=== PATIENT | female | born 1955 | race Caucasian/White ===

== ENCOUNTER 2016-07-27 14:56 | Emergency (ER) | payer OTHER ==
[~2016-07-27] VITALS: Ht 167.6 cm; Wt 90.0 kg
[2016-07-27 15:02] VITALS: Ht 167.6 cm; Wt 90.0 kg
[2016-07-27] MEDS ORDERED: SOD CHLORIDE 0.9% 1,000 ML IV STA ×2 (15:09→16:01)
[2016-07-27 15:26] LABS: ADD SCAN DIFF NO
[2016-07-27 15:28] LABS: BASOPHIL # 0.1 10^3/ul (0.0-0.1); BASOPHILS % 0.4 % (0.0-2.0); EOSINOPHILS # 0.1 10^3/ul (0.0-0.5); EOSINOPHILS % 0.7 % (0.0-7.0); HEMOGLOBIN 14.1 g/dl (12.0-16.0); LYMPHOCYTES # 1.9 10^3/ul (0.8-2.9); LYMPHOCYTES % 15.5 % (15.0-51.0); MEAN CORPUSCULAR HEMOGLOBIN 30.8 pg (29.0-33.0); MEAN CORPUSCULAR HGB CONC 34.4 g/dl (32.0-37.0); MEAN CORPUSCULAR VOLUME 89.5 fl (82.0-101.0); MEAN PLATELET VOLUME 8.8 fl (7.4-10.4); MONOCYTE # 0.9 10^3/ul (0.3-0.9); MONOCYTES % 7.4 % (0.0-11.0); NEUTROPHIL # 9.2 10^3/ul (1.6-7.5); NEUTROPHILS % 75.8 % (39.0-77.0); PLATELET COUNT 247 10^3/UL (140-415); RED BLOOD COUNT 4.58 10^6/ul (4.20-5.40); RED CELL DISTRIBUTION WIDTH 12.7 % (11.5-14.5); WHITE BLOOD COUNT 12.1 10^3/ul (4.8-10.8)
[2016-07-27 15:42] LABS: CHLORIDE 98 mmol/L (97-110); SODIUM 139 mmol/L (135-144)
[2016-07-27 15:43] LABS: POTASSIUM 3.5 mmol/L (3.5-5.1)
[2016-07-27 15:44] LABS: INR 0.92; PARTIAL THROMBOPLASTIN TIME 25.2 Sec (25.0-35.0); PROTIME 12.4 Sec (12.2-14.2)
[2016-07-27 15:45] LABS: ANION GAP 18 (8-16); CARBON DIOXIDE 27 mmol/L (21-31); CREATININE 1.36 mg/dl (0.44-1.00)
[2016-07-27 15:46] LABS: BLOOD UREA NITROGEN 26 mg/dl (7-20); CALCIUM 9.2 mg/dl (8.4-10.2); GLUCOSE 108 mg/dl (70-220)
--- NOTE | 2016-07-27 15:56 | RADRPT ---
PROCEDURE: CHEST 1VW CLINICAL INDICATION: Chest pain TECHNIQUE: Single frontal view of the chest was obtained COMPARISON: None. FINDINGS: The cardiac size is normal. Aortic vascular calcifications are demonstrated. There is no pulmonary vascular congestion. The lungs are clear. No consolidation, effusion, or pneumothorax. Mild degenerative changes of the visualized osseous structures are visualized. IMPRESSION: 1. No acute cardiopulmonary process. 2. Atherosclerosis. RPTAT:PP .Mina Johnston MD, MD Date Time Electronically viewed and signed by .Mina Johnston MD, on 07/27/2016 15:55 .V/
[2016-07-27 15:59] LABS: TROPONIN-I < 0.012 ng/ml (0.00-0.12)
--- NOTE | 2016-07-27 16:19 | ERD ---
ER Documentation Chief Complaint Date/Time DATE: 07/27/16 TIME: 16:18 Chief Complaint SYNCOPE TODAY NO KO. PT A&OX4. HPI This is a 61 year old female who presents to the emergency room for dizziness and weakness. The patient states that she was at her [employer] office and was being treated for herpes ophthalmicus and states that she had not eaten breakfast. She states that she was feeling slightly weak, she did take a [employer] [facility] for her pain. She states that approximately 45 minutes after she took her [employer] [facility] she felt lightheaded. The patient denies any loss of consciousness or denies any shortness of breath. She states her symptoms have resolved and she came to the ER for ROS All systems reviewed and are negative except as per history of present illness. Allergies Allergies: Coded Allergies: gabapentin (Verified Allergy, Intermediate, lips swell up., 07/27/16) PMhx/Soc History of Surgery: Yes (R elbow surgery) Anesthesia Reaction: No Hx Neurological Disorder: No Hx Respiratory Disorders: No Hx Cardiac Disorders: No Hx Psychiatric Problems: No Hx Miscellaneous Medical Probl: Yes (HTN, Reflux) Hx Alcohol Use: Yes Hx Substance Use: No Hx Tobacco Use: No Smoking Status: Never smoker Physical Exam Vitals Vital Signs Date Time Temp Pulse Resp B/P Pulse Ox O2 Delivery O2 Flow Rate FiO2 07/27/16 15:02 97.8 73 16 117/80 95 Physical Exam INITIAL VITAL SIGNS: Reviewed by me GENERAL: The patient is well developed and appropriate for usual state of health in no apparent distress HEENT: Dry mucous membranes, pupils equal, round, and reactive to light. EOMI. There is no scleral icterus. NECK: C-spine is soft and supple, there is no meningismus. There is no cervical lymphadenopathy. LUNGS: Clear to auscultation bilaterally. There are no rales, wheezes or rhonchi. HEART: Regular rate and rhythm, no murmurs, clicks, rubs or gallops. ABDOMEN: Soft, non-tender, non-distended. There are bowel sounds in all four quadrants. No rebound or guarding. EXTREMITIES: There is no peripheral cyanosis or edema. No focal swelling or erythema. NEUROLOGICAL: The patient moves all four extremities with 5/5 strength. Cranial nerves II - XII are intact. Normal gait. Alert and oriented SKIN: There is no apparent rash or petechiae. HEME/LYMPHATIC: There is no evidence of excessive bruising or lymphedema. PSYCHIATRIC: The patient does not appear anxious or depressed. Result Diagram: 07/27/16 1515 07/27/16 1515 Results 24 hrs Laboratory Tests Test 07/27/16 15:15 White Blood Count 12.110^3/ul Red Blood Count 4.5810^6/ul Hemoglobin 14.1g/dl Hematocrit 41.0% Mean Corpuscular Volume 89.5fl Mean Corpuscular Hemoglobin 30.8pg Mean Corpuscular Hemoglobin Concent 34.4g/dl Red Cell Distribution Width 12.7% Platelet Count 06431^3/UL Mean Platelet Volume 8.8fl Neutrophils % 75.8% Lymphocytes % 15.5% Monocytes % 7.4% Eosinophils % 0.7% Basophils % 0.4% Nucleated Red Blood Cells % 0.0/100WBC Neutrophils # 9.210^3/ul Lymphocytes # 1.910^3/ul Monocytes # 0.910^3/ul Eosinophils # 0.110^3/ul Basophils # 0.110^3/ul Nucleated Red Blood Cells # 0.010^3/ul Prothrombin Time 12.4Sec Prothrombin Time Ratio 1.0 INR International Normalized Ratio 0.92 Activated Partial Thromboplast Time 25.2Sec Sodium Level 139mmol/L Potassium Level 3.5mmol/L Chloride Level 98mmol/L Carbon Dioxide Level 27mmol/L Anion Gap 18 Blood Urea Nitrogen 26mg/dl Creatinine 1.36mg/dl Glucose Level 108mg/dl Calcium Level 9.2mg/dl Troponin I < 0.012ng/ml Current Medications Medications (Trade) Dose Ordered Sig/Nima Route PRN Reason Start Time Stop Time Status Last Admin Dose Admin Sodium Chloride 1,000 ml @ 1,000 mls/hr Q1H STAT IV 07/27/16 15:09 07/27/16 16:08 DC 07/27/16 15:31 Sodium Chloride (NS) 1,000 ml @ 1,000 mls/hr Q1H STAT IV 07/27/16 16:01 07/27/16 17:00 07/27/16 16:04 Procedures/MDM EKG: Rate/Rhythm: [Normal Sinus Rhythm] QRS, ST, T-waves: [No changes consistent w/ acute ischemia] Impression: [No evidence of ischemia or arrhythmia] EKG: #2 Rate/Rhythm: [Normal Sinus Rhythm] QRS, ST, T-waves: [No changes consistent w/ acute ischemia] Impression: [No evidence of ischemia or arrhythmia] Chest X-ray 1V Interpreted by me: Soft Tissue: No acute abnormalities Bones: No acute abnormalities Mediastinum/Cardiac Silhouette/Lungs: [No acute abnormalities] This 61-year-old female presents to the emergency room for dizziness and a possible presyncopal episode. This patient states that she did take a [employer] [facility] on an empty stomach. When I evaluated this patient she did have dry mucous membranes. I did obtain lab work including a troponin which is negative. Her EKG is nonischemic, second EKG obtained approximately 45 minutes after arrival is also nonischemic and shows normal sinus rhythm. Chest x-ray is clear. She is hemodynamically stable at this time with no syncope or dizziness in the emergency room. She was given 2 L of fluid and I advised her that taking narcotic medication on empty stomach can contribute to her symptoms. She verbalized understanding. The patient was advised to follow with her primary care physician to establish an appointment for outpatient stress test and she verbalized understanding. Departure Diagnosis: Primary Impression: Pre-syncope Additional Impression: Mild dehydration Condition: Stable ELANSYED WINN July 27, 2016 16:19
[2016-07-27 17:01] VITALS: BP 136/84; PULSE 78; RESP 14; TEMP 98.1
== END 2016-07-27 17:02 | disposition home or self-care (01) ==
LOC: E/R 14:56
DX: R55 Syncope and collapse (principal); E86.0 Dehydration; I10 Essential (primary) hypertension
CPT/HCPCS: 36415; 71010; 80048; 84484; 85025; 85610; 85730; 93005; 96360; 99285; J7030